=== PATIENT | male | born 1985 | race Two or more races ===

== ENCOUNTER 2023-07-17 11:13 | Outpatient (REF) | payer SELFPAY ==
[2023-07-17 13:34] LABS: MANUAL DIFF FLAG NO
[2023-07-17 13:42] LABS: Basophils Percent Auto 0.6 % (0-2); Eosinophils Absolute Auto 0.1 X10*3/uL (0.0-0.4); Eosinophils Percent Auto 0.9 % (0-4); Hematocrit 43.6 % (42.0-52.0); Hemoglobin 14.3 g/dl (14.0-18.0); Imm Gran Abs Auto 0.02 X10*3/uL (0.00-0.03); Imm Gran Pct Auto 0.4 % (0.0-0.4); Lymphocytes Absolute Auto 1.5 X10*3/uL (1.2-4.9); Lymphocytes Percent Auto 27.8 % (20-40); Mean Corpuscular HGB Conc 32.8 g/dl (31.0-36.0); Mean Corpuscular Hemoglobin 27.8 pg (27.0-33.0); Mean Corpuscular Volume 84.8 fL (80.0-98.0); Mean Platelet Volume 12.6 fL (9.4-12.4); Monocytes Absolute Auto 0.4 X10*3/uL (0.1-1.2); Monocytes Percent Auto 8.2 % (2-11); Neutrophils Absolute Auto 3.3 x10*3/uL (2.0-8.3); Neutrophils Percent Auto 62.1 % (45-73); Platelet Count 175 X10*3/uL (160-400); Red Blood Count 5.14 X10*6/uL (4.60-5.80); Red Cell Distribution Width 14.4 % (11.0-16.0); White Blood Count 5.4 X10*3/uL (4.8-10.8)
[2023-07-17 13:58] LABS: Estimated Average Glucose 100 mg/dL; Hemoglobin A1c % 5.1 % (<6.0)
[2023-07-17 14:09] LABS: Alanine Aminotransferase 16 U/L (0-40); Albumin Level 4.2 g/dL (3.5-5.0); Alkaline Phosphatase 60 U/L (39-117); Anion Gap 10 (12-20); Aspartate Amino Transferase 14 U/L (5-37); Bilirubin Direct 0.4 mg/dL (0.0-0.5); Bilirubin Total 0.9 mg/dL (0.0-1.0); Blood Urea Nitrogen 11 mg/dL (9-16); Carbon Dioxide 29 mmol/L (22-29); Chloride 107 mmol/L (96-108); Cholesterol 130 mg/dL (<200); Estimated Glomerular Filt Rate > 60; Glucose Random 62 mg/dL (60-115); HDL Cholesterol 52 mg/dL (>40); LDL Cholesterol Calculated 65 mg/dL (<100); Potassium 4.6 mmol/L (3.3-5.1); Sodium 141 mmol/L (135-145); Total Protein 6.8 g/dL (6.5-8.0); Triglycerides 67 mg/dL (<150)
[2023-07-17 14:24] LABS: TSH reflex Free T4 0.93 uIU/mL (0.32-4.0); Vitamin D 25-OH Total 24.7 ng/mL (>30)
[2023-07-17 14:30] LABS: Folate 10.2 ng/mL (> or = 4.0); Vitamin B12 326 pg/mL (200-900)
[2023-07-17 14:55] LABS: CT PCR NOT DETECTED (Not Detect.); NG PCR NOT DETECTED (Not Detect.)
[2023-07-18 09:02] LABS: HBS Num1 > 1000.00 mIU/mL (0-7.99); HBc Num1 0.06 S/CO (0.00-0.79); Hepatitis A Antibody IgM 0.14 Index (0-0.79); Hepatitis B Core Antibody Nonreactive (Nonreactive); Hepatitis B Surface Antigen Negative (Negative); ~HepC Num1 0.11 S/CO (0.00-0.79); ~Hepatitis A Antibody IgM Nonreactive (Nonreactive); ~Hepatitis B Surface Antibody REACTIVE (Nonreactive); ~Hepatitis C Antibody Nonreactive (Nonreactive)
[2023-07-20 22:14] LABS: HIV RNA PCR Qn Copies Not Detected Copies/mL; HIV RNA PCR Qn Log Copies Not Detected Log cps/mL
== END 2023-07-17 11:14 | disposition home or self-care (01) ==
LOC: HO.HHCL 11:13
PROVIDERS: Visit Provider Internal Medicine
DX: Z13.6 Encounter for screening for cardiovascular disorders (principal); R63.4 Abnormal weight loss; Z20.2 Contact with and (suspected) exposure to infections with a predominantly sexual mode of transmission
CPT/HCPCS: 0353U; 36415; 80048; 80061; 80076; 82306; 82607; 82746; 83036; 84443; 85025; 86704; 86706; 86709; 86803; 87340; 87536; 87900

== ENCOUNTER 2023-09-04 11:52 | Outpatient (REF) | payer MEDICAID, SELFPAY | END 2023-09-04 11:53 | disposition home or self-care (01) | LOC: HO.HHCLNP 11:52 | PROVIDERS: Visit Provider Emergency Medicine | DX: F11.20 Opioid dependence, uncomplicated (principal) | CPT/HCPCS: 36415; 80307 ==

== ENCOUNTER 2023-12-25 15:53 | Outpatient (AMB) | payer MEDICAID, SELFPAY ==
--- NOTE | 2023-12-25 16:06 | A.OFFVIS_ITS ---
Vital Signs 12/25/23 16:11 Height 5 ft 11 in Weight 167 lb BMI 23.3 BP 112/70 Blood Pressure Location Lt brachial Position Sitting Pulse 66 Intake Visit Reasons: pre colonoscopy Intake Note: Joce presents in office today for colonoscopy screening. CC: Patient reports an episode of what he believes was food poisoning and was having abdominal pain and fever. Denies other GI symptoms or concerns. Medical Imaging Technologist Required: No Accompanied by: Self / Same As Patient Allergies No Known Allergies Allergy (Verified 12/25/23 16:19) HPI HPI pre colonoscopy: Details: 38 year old male with past medical history of anxiety, depression, opioid use disorder on Suboxone, weight loss, family history of colon CA, smoker is here today for initial consultation. Patient reports that in the past few months he has been having postprandial diarrhea. Nausea and vomiting sometimes. He tho ught that he had some kind of food poisoning. Symptoms subsided to some extent, however he continues to have abdominal bloating with cramping, postprandial loose stools and epigastric pain. Patient reports that the pain is in the epigastric, sometimes in the left upper quadrant with occasional acid reflux, dyspepsia without dysphagia or odynophagia. Patient reports that he had few family members that were diagnosed with colorectal cancer in earlier stages of the life. [facility] Surgical History No pertinent past surgical history Family History Family/Other Colon cancer Father Colon cancer Paternal Aunt Stomach cancer Paternal Aunt Throat cancer Maternal Aunt Breast cancer Social History Household Members: Spouse and Children Alcohol intake: never Patient Tobacco Use Status: Current everyday Tobacco user Tobacco use type: Cigarette Cigarettes Per Day: 5 Substance Use Type: Heroin and Marijuana Review of Systems Const Denies weight gain and Denies weight loss ENT Reports no additional complaints, Denies dysphagia and Denies odynophagia Card Reports no additional complaints Resp Reports no additional complaints GI Reports abdominal pain (Epigastric, LUQ), Denies belching, Denies melena, Reports bloating, Denies change in bowel habits, Denies dysphagia, Denies excessive flatus, Reports dyspepsia, Reports heartburn, Denies diarrhea, Reports loose stools, Reports nausea, Denies odynophagia and Denies vomiting Reports no additional complaints Musc Reports no additional complaints Neuro Reports no additional complaints Psych Reports no additional complaints Endo Reports no additional complaints Physical Exam Vital Signs: Last Vital Signs Pulse 66 12/25/23 16:11 BP 112/70 12/25/23 16:11 BMI result Body Mass Index 23.3 Const General: healthy appearing, no acute distress and well developed Nutritional Appearance: well nourished Orientation/consciousness: patient oriented x3 Resp Effort & Inspection: normal respiratory effort, able to speak in complete sentences, no tracheal deviation and symmetric chest movement Auscultation: clear to auscultation bilaterally Cardio Rate: regular rate GI Inspection: Yes normal to inspection and No distended Palpation (GI): Soft to palpation, not firm, nontender and No hepatosplenomegaly present Auscultation: normal bowel sounds General: Yes no CVA tenderness Back/Spine/Pelvis Back: no CVA tenderness Skin General skin exam: elasticity normal, turgor normal and dry skin Neuro General: patient oriented x3 Psych Appearance: grossly normal Mental Status: mental status grossly normal Assessment & Plan Assessment & Plan (1) Postprandial abdominal bloating: Code(s): R14.0 - Abdominal distension (gaseous) (2) GERD (gastroesophageal reflux disease): Code(s): K21.9 - Gastro-esophageal reflux disease without esophagitis Qualifiers: Esophagitis presence: esophagitis presence not specified Qualified Code(s): K21.9 - Gastro-esophageal reflux disease without esophagitis (3) Postprandial diarrhea: Code(s): K52.9 - Noninfective gastroenteritis and colitis, unspecified (4) Postprandial epigastric pain: Code(s): R10.13 - Epigastric pain Plan Message sent to surgical schedulers to book both upper endoscopy and colonoscopy. In the meantime will rule out celiac, H pylori, pancreatitis. Will check for malabsorption, check thyroid study, liver panel. Patient will be started on omeprazole daily. If positive for H pylori will treat empirically. Discussed with patient the importance of avoiding dietary triggers and late night snacking. Increasing fluid intake, fiber intake and activity to promote better bowel motility. Patient will return in 3 months and we can discuss going for both upper endoscopy and colonoscopy. He is agreeable to current plan of care and verbalizes understanding of instructions. He was given the opportunity to ask questions and all questions answered. Thank you for allowing me to participate in his care Orders: Orders Transglutaminase Ab IgG 12/25/23 R10.9 - Unspecified abdominal pain TSH reflex Free T4 12/25/23 K59.00 - Constipation, unspecified H Pylori Breath Test 12/26/23 K21.9 - Gastro-esophageal reflux disease without esophagitis Lipase 12/25/23 R10.9 - Unspecified abdominal pain Vitamin D 25-OH (D2 and D3) 12/25/23 E55.9 - Vitamin D deficiency, unspecified Liver Panel 12/25/23 R74.01 - Elevation of levels of liver transaminase levels Vitamin B12 and Folate 12/25/23 R19.7 - Diarrhea, unspecified Transglutaminase IgA 12/25/23 R10.9 - Unspecified abdominal pain Medications: New omeprazole 20 mg PO DAILY 30 caps 4RF K21.9 - Gastro-esophageal reflux disease without esophagitis Coding Level of Care Code New Pt Level 4 (68230) Diagnoses Postprandial abdominal bloating R14.0 Gastroesophageal reflux disease, unspecified whether esophagitis present K21.9 Esophagitis presence: esophagitis presence not specified Postprandial diarrhea K52.9 Postprandial epigastric pain R10.13 Time Spent (min) 45 Comment 30 minutes spent with patient and additional 15 minutes spent reviewing his records
[2023-12-25 16:11] VITALS: BP 112/70; PULSE 66; BMI 23.3
== END 2023-12-25 17:00 | disposition home or self-care (01) ==
LOC: HO.HGI 15:54
PROVIDERS: PCP Internal Medicine; Visit Provider Nurse Practitioner Family
DX: R14.0 Abdominal distension (gaseous) (principal); K21.9 Gastro-esophageal reflux disease without esophagitis; K52.9 Noninfective gastroenteritis and colitis, unspecified; R10.13 Epigastric pain
CPT/HCPCS: 99204

== ENCOUNTER 2023-12-25 15:53 | Outpatient (REF) | payer MEDICAID, SELFPAY ==
[2023-12-27 09:31] LABS: H Pylori Breath Test Positive (Negative)
== END 2023-12-25 15:54 | disposition home or self-care (01) ==
LOC: HO.LNP 15:53
PROVIDERS: PCP Internal Medicine; Visit Provider Nurse Practitioner Family
DX: K21.9 Gastro-esophageal reflux disease without esophagitis (principal); Z01.818 Encounter for other preprocedural examination; R14.0 Abdominal distension (gaseous); K52.9 Noninfective gastroenteritis and colitis, unspecified; R10.13 Epigastric pain; K74.01 Hepatic fibrosis, early fibrosis; E55.9 Vitamin D deficiency, unspecified; R10.9 Unspecified abdominal pain
CPT/HCPCS: 83013; 99212

== ENCOUNTER 2024-02-11 11:59 | Emergency (ER) | payer MEDICAID, SELFPAY ==
--- NOTE | ~2024-02-11 | XR_ITS ---
EXAMINATION: XR LUMBOSACRAL SPINE CLINICAL INFORMATION: Back pain COMPARISON: None available. TECHNIQUE: Three views of the lumbosacral spine. FINDINGS: Mild dextroscoliosis of the lumbar spine. Facet arthritis in the lower lumbar spine. Multilevel lumbar spondylosis. Moderate degenerative changes with loss of disc space height and hypertrophic change at L5-S1. Normal grade 1 retrolisthesis of L5 on S1. XR/XR lumbar spine 2-3V IMPRESSION: Moderate degenerative disc disease at L5-S1. This study was presented today to February 11, 2024 for interpretation. Stat results provided at this time as requested by referring provider. Electronically signed by: Nathalia Bullock MD 02/11/2024 12:43 PM [facility]
[2024-02-11 12:08] VITALS: BP 119/65; PULSE 74; RESP 16; TEMP 36.8; O2SAT 98; BMI 24.0
--- NOTE | 2024-02-11 12:15 | ED_ITS ---
HPI - General Adult General Chief complaint: Back Pain/Injury Stated complaint: Back pain Time Seen by Provider: 02/11/24 13:23 Source: patient Mode of arrival: ambulatory Limitations: no limitations History of Present Illness ED Provider: Jaydon Echevarria HPI narrative: 38-year-old male presents to ED for low back pain without any trauma. Patient states history of chronic back pain due to injury as a child. Patient denies any urinary/bowel incontinence. Patient denies any recent IV drug use. Patient denies any abdominal pain, flank pain, fever, chills, nausea, vomiting, rash, dysuria, hematuria, or any genitourinary symptoms. Related Data Home Medications ?Medication ?Instructions ?Recorded ?Confirmed albuterol sulfate 90 mcg/actuation 2 puff inhalation Q6H PRN wheezing 12/25/23 aerosol inhaler (Ventolin HFA) buprenorphine 8 mg-naloxone 2 mg 1 film sublingual TID 12/25/23 sublingual film (Suboxone) cholecalciferol (vitamin D3) 25 25 mcg PO DAILY 12/25/23 mcg (1,000 unit) tablet sertraline 100 mg tablet 100 mg PO DAILY 12/25/23 Previous Rx's ?Medication ?Instructions ?Recorded omeprazole 20 mg capsule,delayed 20 mg PO DAILY #30 caps 12/25/23 release ketorolac 10 mg tablet 10 mg PO Q6H PRN pain #20 tabs 02/11/24 prednisone 20 mg tablet 40 mg (2 x 20 mg) PO DAILY 5 days 02/11/24 #10 tabs Allergies Allergy/AdvReac Type Severity Reaction Status Date / Time No Known Allergies Allergy Verified 02/11/24 12:12 Review of Systems Review of Systems: Low back pain Yes all other systems are reviewed and are negative [facility] Past Medical History Surgical History No pertinent past surgical history Family History Family History Family/Other Colon cancer Father Colon cancer Paternal Aunt Stomach cancer Paternal Aunt Throat cancer Maternal Aunt Breast cancer Social History Social History Household Members: Spouse and Children Alcohol intake: never Patient Tobacco Use Status: Current everyday Tobacco user Tobacco use type: Cigarette Cigarettes Per Day: 5 Substance Use Type: Heroin and Marijuana Advance Directives: No Advance Directives Information Provided: Yes Do you have a plan to hurt others: No Plan Physical Exam ED Vital Signs: Vital Signs - 24 hr 02/11/24 12:08 02/11/24 14:08 Temperature 98.3 F 98.3 F Pulse Rate 74 74 Respiratory Rate 16 16 Blood Pressure 119/65 119/65 Pulse Oximetry 98 98 Oxygen Delivery Method Room Air Room Air BMI result Body Mass Index 24.0 Const General: cooperative, healthy appearing, comfortable, no acute distress, well developed, alert, awake and Physically active Orientation/consciousness: patient oriented x3 HENMT Head: Yes normal to inspection, Yes No palpable skull fracture present, Yes normocephalic and Yes atraumatic Eyes General: appearance normal, both eyes and all related structures Neck Neck: Yes normal visual inspection, Yes full ROM, Yes no lymphadenopathy, Yes no meningeal signs, Yes trachea midline, Yes supple, No anterior neck swelling and No tender Chest Chest palpation & inspection: normal inspection of the chest and normal palpation of entire chest wall Resp Effort & Inspection: normal respiratory effort and able to speak in complete sentences Auscultation: clear to auscultation bilaterally Cardio Jugular venous distension: no JVD Heart sounds: S1 normal heart sound present and S2 normal heart sound present GI Inspection: Yes normal to inspection Palpation (GI): Soft to palpation, not firm, nontender, no guarding and not rigid General: Yes no CVA tenderness Back/Spine/Pelvis Back: no CVA tenderness and back tenderness (lumbar spine tenderness) Skin General skin exam: no rashes or lesions noted, elasticity normal and turgor normal Neuro General: patient oriented x3, gait normal, tone normal, moves all extremities, N ormal light touch and pain sensation, no meningeal signs, no focal motor deficits, CN's II-XI intact bilaterally and normal sensation to monofilament Extrem General: Yes normal to inspection, Yes full ROM and Yes capillary refill normal Psych Appearance: grossly normal, well kempt and not disheveled Course Course Course Narrative: RME: 38 year male presents to ED for low back pain for the past couple of weeks without any trauma. Patient states history of back issues due to injury as a child. Patient denies any urinary/bowel incontinence. X-ray ordered. Positive for lumbar spine tenderness Medications Administered Discontinued Medications Generic Name Dose Route Start Last Admin Trade Name Freq PRN Reason Stop Dose Admin Ketorolac Tromethamine 30 mg 02/11/24 13:27 02/11/24 13:33 Ketorolac Tromethamine 30 Mg/Ml Vial IM 02/11/24 13:28 30 mg ONCE ONE Administration Medical Decision Making Medical Decision Making MDM Narrative: 38-year-old male presents to ED for lower back exacerbation. Patient states history of back issues since he was young. Patient denies any recent trauma. Patient denies any urinary/bowel incontinence, fever, chills, gum pain, nausea, vomiting, dysuria, hematuria, flank pain. Patient states back pain is worse on movement. Patient denies any recent IV drug use. Patient's pain improved after receiving Toradol. Patient explained worrisome signs and informed to return to the ED immediately. Not suspecting cauda equinua, epidural abscess. Not suspecting kidney stone pyelonephritis, or UTI. Differential Diagnosis Differential Diagnoses: The differential diagnosis associated with the presentation includes (back pain, lumbar radiculpahty) Admission/Observation Consideration of admission/observation: Escalation of care including admission/observation considered Independent Interpretation I performed an independent interpretation of an: Plain X-Ray Radiology Impression Discussion of test interpretation with radiology: I have reviewed the radiologist's reading. Independent Historian Clinical information obtained from an independent historian. History obtained from or confirmed by: Other (patient) External Record Review External record reviewed: Other (patient) Prescription Management I considered prescription management with: Pain Medication Discharge Plan Discharge Clinical Impression: Lumbar radiculopathy Patient Disposition: Home, Self-Care Instructions: Lumbar Radiculopathy (ED) Additional Instructions: Recommend follow up with the primary care provider. Return to the ED immediately for any urinary/bowel incontinence, severe back pain, nausea, vomiting, flank pain, fever, chills, paralysis numbness of lower extremity, or any other concerning symptoms. FINDINGS: Mild dextroscoliosis of the lumbar spine. Facet arthritis in the lower lumbar spine. Multilevel lumbar spondylosis. Moderate degenerative changes with loss of disc space height and hypertrophic change at L5-S1. Normal grade 1 retrolisthesis of L5 on S1. XR/XR lumbar spine 2-3V IMPRESSION: Moderate degenerative disc disease at L5-S1. This study was presented today to February 11, 2024 for interpretation. Stat results provided at this time as requested by referring provider. Electronically signed by: Nathalia Bullock MD 02/11/2024 12:43 PM [facility] Dictated By: Nathalia Bullock MD Signed By: <Electronically signed by Nathalia Bullock MD in OV> 02/11/24 1243 Prescriptions: New prednisone 20 mg tablet 40 mg PO DAILY 5 Days Qty: 10 0RF ketorolac 10 mg tablet 10 mg PO Q6H PRN (Reason: pain) Qty: 20 0RF Rx Instructions: Patient received 30 mg IM Toradol in the ED No Action cholecalciferol (vitamin D3) 25 mcg (1,000 unit) tablet 25 mcg PO DAILY buprenorphine-naloxone [Suboxone] 8-2 mg film 1 film sublingual TID sertraline 100 mg tablet 100 mg PO DAILY albuterol sulfate [Ventolin HFA] 90 mcg/actuation HFA aerosol inhaler 2 puff inhalation Q6H PRN (Reason: wheezing) omeprazole 20 mg capsule,delayed release(DR/EC) 20 mg PO DAILY Qty: 30 4RF Referrals: Mark Macias MD, PhD [Physician] - (lumbar radiculopathy) Stand Alone Forms: Work/School Release Interventions: ED Discharge Assessment Last Done: 02/11/24 14:08 Discharge Date/Time: 02/11/24 14:08 Print Language: Liberian
[2024-02-11] MEDS: Ketorolac Tromethamine 30 MG/ML VIAL IM (13:33)
[2024-02-11 14:08] VITALS: BP 119/65; PULSE 74; RESP 16; TEMP 36.8; O2SAT 98
== END 2024-02-11 14:08 | disposition home or self-care (01) ==
PROVIDERS: Emergency Provider Emergency Medicine; PCP Internal Medicine
DX: M54.16 Radiculopathy, lumbar region (principal); M54.50 Low back pain, unspecified; F17.210 Nicotine dependence, cigarettes, uncomplicated
CPT/HCPCS: 72100; 96372; 99283; 99284; J1885

== ENCOUNTER 2024-10-27 15:54 | Outpatient (REF) | payer MEDICAID, SELFPAY ==
--- OUTSIDE RECORDS SUMMARY | 2024-10-27 13:00 | XMS_ITS | Encounter Summary ---
Author Organization [employer] Address [address] [place] [address] Care Team Providers Care Ground Hand Name Role Phone Donna Friedman MD Primary Care Provide r Reason for Visit * Reason Comments OBAT F/U Encounter Details Date Type Department Care Team (Latest Contact Info) Description 10/27/2024 1:00 PM EDT Clinical Support [facility] [address] [place] [id number] Lashell Kapadia RN Opioid type dependence, continuous (CMS/HCC) (Primary Dx) Social History Tobacco Use Types Packs/Day Years Used Date Smoking Tobacco: Every Day Cigarettes 0.3 19 Smokeless Tobacco: Never Alcohol Use Standard Drinks/Week Comments Yes 0 (1 standard drink = 0.6 oz pur e alcohol) Depression Answer Date Recorded Patient Health Questionnaire-9 Score 20 07/17/2023 Patient Health Questionnaire-9 Score 20 07/17/2023 Last PHQ-9: Questionnaire Data Not on file 0 07/17/2023 Housing Stability Answer Date Recorded What is your housing situation today? I have vasyl mitchell 07/17/[address] you li ve. Do you have problems with any of the following? None of the above 07/17/2023 Food Insecurity Answer Date Recorded Within the past 12 months, y ou worried that your food would run out before you got money to buy more: Never True 04/30/2023 Within the past 12 months,th e food you bought just didn't last and you didn't have enough money to get more: Never True 12/2023 Transportation Answer Date Recorded In the past 12 months, has l ack of transportation kept you from medical appts, meetings, work or from getting things needed for daily living? No 04/30/2023 Utilities Answer Date Recorded In the past 12 months, has t he electric, gas, oil or water company threatened to shut off services in your home? No 07/17/2023 Depression Answer Date Recorded Patient Health Questionnaire-2 Score 6 07/17/2023 Sex and Gender Information Value Date Recorded Sex Assigned at Male 12/19/2021 10:29 AM EDT Legal Sex Male 10:29 AM EDT Gender Identity Male 02/23/2022 2:04 PM EST Sexual Orientation Straight 02/23/2022 2: 04 PM EST documented as of this encounter Progress Notes * Lashell Kapadia RN - 10/27/2024 1:00 PM EDT Patient here today for Opioid Dependence RV. Patient on current Suboxone dose of 24/6 mg on a 12 week schedule. Patient has been in the program for 2 years, 8 months. Induction date: 02/23/22. LFTs done 10/27/24. [place] PAT reviewed by provider. Last PCP appt sched for 12/19/2023, Pt was a no show. LAST VISIT 09/01/24 UTOX NOT REQUESTED TODAY Joce presented today for OBAT RN IN PERSON VISIT for Opioid Use Disorder. He is alert and oriented. Speech clear, coherent, goal directed. Easily engaged and initiates conversation. 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 In good spirits today. Doing well on suboxone. Denies illicit substance use, cravings or side effects. Concerned about his weight loss, but has not kept most recent scheduled appointments. He feels that it may be due more calories expended than taken in. He also said that he has had labwork done but everything was okay. Suggested he f/u with his PCP. Plan: Suboxone dosing schedule of 24/6 mg daily and management of side effects reviewed. Recovery support, harm reduction (including Narcan), and behavioral health attendance reviewed. Appointment for 12 weeks given (due to holiday 06/09. Patient expressed understanding and agreement with continuing plan of care. TODAY 10/27/24 UTOX: +bup, thc Joce presented today for OBAT RN IN PERSON VISIT for Opioid Use Disorder. He is alert and oriented. Speech clear, coherent, goal directed. Easily engaged and initiates conversation. Doing well on suboxone. Denies illicit substance use, cravings or side effects. 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 He is going to the lab today to complete his ordered labwork. Plan: Suboxone dosing schedule of 24/6 mg daily and management of side effects reviewed. Recovery support, harm reduction (including Narcan), and behavioral health attendance reviewed. Appointment for 12 weeks given. Patient expressed understanding and agreement with continuing plan of care. This information has been disclosed to you from records protected by federal confidentiality rules (42 CFR Part 2). The federal rules prohibit you from making any further disclosure of information inthis record that identifies a patient as having or having had a substance use disorder either directly, by reference to publicly available information, or through verification of such identification by another person unless further disclosure is expressly permitted by the written consent of the individual whose information is being disclosed or as otherwise permitted by (see2.3.1). The federal rules restrict any use of the information to investigate or prosecute with regard to a crime any patient with a substance use disorder, except as provided at 2.12??(5) and 2.65. documented in this encounter Plan of Treatment Upcoming Encounters Date Type Department Care Team (Late st Contact Info) Description 01/19/2025 1:00 PM EST Clinical Support [facility] MEDICINE [address] [place] [phone] Lashell Kapadia RN documented as of this encounter Procedures Procedure Name Priority Date/Time Associated Diagnosis Comments POCT REMY-14 URINE DRUG SCREEN Routine 10/27/2024 3:50 PM EDT Opioid type dependence, continuous ([facility]/HCC) documented in this encounter Results * (ABNORMAL) POCT REMY-14 Urine Drug Screen (10/27/2024 3:50 PM EDT) THC Positive(A) Negative Cocaine Screen, Urine Negative Negative Opiate Screen, Urine Negative Negative Methamphetamine Screen Urine Negative Negative Amphetamine Screen, Urine Negative Negative Benzodiazepines Screen, Urine Negative Negative Barbiturate Screen, Urine Negative Negative Methadone Screen, Urine Negative Negative Buprenophine Screen, Urine Positive(A) Negative TCA, Urine Negative Negative MDMA Urine Negative Negative ng/mL Oxycodone Screen, Urine Negative Negative Phencyclidine (PCP), Urine Negative Negative Fentanyl, Urine Negative Negative Urine Urine specimen obtained by clean catch procedure / Unknown 10/27/2024 3:50 PM EDT Margoth Flores MD POINT OF CARE TEST ENTER/EDIT OR DERABLES Final Result documented in this encounter Visit Diagnoses Diagnosis Opioid type dependence, continuous (CMS/[facility])- Primary Opioid type dependence, continuous documented in this encounter Additional Health Concerns Assessment Noted Time PHQ-9 Depression Total Score: 20 024 10:30 AM EDT documented as of this encounter Care Teams Ground Hand Relationship Specialty Start Date End Date Donna Friedman MD [address] [place] [address] PCP - General Internal Medicine 07/17/23 documented as of this encounter
[2024-10-27 17:51] LABS: Alanine Aminotransferase 21 U/L (0-40); Albumin Level 4.5 g/dL (3.5-5.0); Alkaline Phosphatase 56 U/L (39-117); Aspartate Amino Transferase 22 U/L (5-37); Total Protein 6.9 g/dL (6.5-8.0)
--- OUTSIDE RECORDS SUMMARY | 2024-10-27 18:38 | XMS_ITS | Encounter Summary ---
Author Organization [employer] [facility] Address [address] [place] [address] [address] [place] [address] Care Team Providers Care Fitter Machinist Name Role Phone Donna Friedman MD Primary Care Provide r Encounter Details Date Type Department Care Team (Late Contact Info) Description 03/03/2022 Orders Only [facility] [address] [place] [id number] Lashell Kapadia, RN Social History Tobacco Use Types Packs/Day Years Used Date Smoking Tobacco: Every Day Cigarettes 1 19 Smokeless Tobacco: Never Sex and Gender Information Value Date Recorded Sex Assigned at Male 12/19/2021 10:29 AM EDT Legal Sex Male 10:29 AM EDT Gender Identity Male 02/23/2022 2:04 PM EST Sexual Orientation Straight 02/23/2022 2: 04 PM EST COVID-19 Exposure Response Date Recorded In the last 10 days, have yo u been in contact with someone who was confirmed or suspected to have Coronavirus/COVID-19? No / Unsure 03/02/2022 1:44 PM EST documented as of this encounter Plan of Treatment Upcoming Encounters Date Type Department Care Team (Late Contact Info) Description 01/19/2025 1:00 PM EST Clinical Support [facility] [address] [place] [id number] Lashell Kapadia, RN documented as of this encounter Visit Diagnoses Not on filedocumented in this encounter Care Teams Fitter Machinist Relationship Specialty Start Date End Date Donna Friedman MD [address] [place] [phone] PCP - General Internal Medicine 07/17/23 documented as of this encounter
--- OUTSIDE RECORDS SUMMARY | 2024-10-27 18:38 | XMS_ITS | Clinical Summary ---
Author Organization [employer] Address [address] [facility] 7t [place] [address] Care Team Providers Care Ophthalmic Technician Name Role Phone Donna Friedman MD Primary Care Provide r Allergies No known active allergies Medications albuterol 108 (90 Base) MCG/ACT inhalerIndicati ons:Mild intermittent asthma without complication Inhale 2 puffs every 6 (six) hours if needed for wheezing. 18 g 07/17/19 24 Active sertraline (Zoloft) 100 MG tabletIndicatio ns:Anxiety and depression Take 1 tablet (100 mg) by mouth Once per day. 30 tablet 2 09/18/19 24 Active Additional Information Patient not taking.Reported on 06/16/2024 cholecalciferol (Vitamin D-3) 25 MCG tabletIndicatio ns:Vitamin D deficiency TAKE 1 TABLET BY MOUTH EVERY DAY 90 tablet 1 11/12/19 24 Active Additional Information Patient not taking.Reported on 06/16/2024 acetaminophen (Tylenol 8 Hour) 650 MG ER tablet Take 1 tablet (650 mg) by mouth every 8 (eight) hours if needed for mild pain. Do not crush, chew, or split. 30 tablet 06/17/19 25 Active acetaminophen (Tylenol 8 Hour) 650 MG ER tabletIndicatio ns:Retained root of tooth after tooth extraction Take 1 tablet (650 mg) by mouth every 8 (eight) hours if needed for mild pain. Do not crush, chew, or split. 30 tablet 07/30/19 25 Active Buprenorphine HCl-Naloxone HCl (Suboxone) 8-2 MG SL filmIndications :Uncomplicated opioid dependence (CMS/HCC) Place 1 Film under the tongue 3 times daily. 84 Film 2 10/14/19 25 2024 Active Buprenorphine HCl-Naloxone HCl (Suboxone) 8-2 MG SL filmIndications :Uncomplicated opioid dependence (CMS/HCC) Place 1 Film under the tongue 3 times daily. 84 Film 1 08/27/19 25 2024 Discontinued(R eorder (will not trigger notification to Pharmacy)) Active Problems Problem Noted Date Diagnosed Date Retained root of tooth after tooth extraction Dental abscess 06/16/2024 Pain due to dental caries 06/16/2024 Hypercementosis 06/16/2024 Vitamin D deficiency 08/21/2023 Weight loss 07/17/2023 Assessment & Plan (07/17/2023 11:08 AM EDT): Blood work ordered including diabetes screening (patient has strong family history) RTC 4 weeks Family history of colon cancer 07/17/2023 Smoker 07/17/2023 Assessment & Plan (07/17/2023 11:09 AM EDT): Patient wants to try to quit on his own Asthma 03/13/2022 Assessment & Plan (07/17/2023 11:07 AM EDT): Patient educated to avoid triggers c/w albuterol PRN PTSD (post-traumatic stress disorder) 10/31/2021 Overview (06/16/2024): States hx of anxiety and hypervigilance even prior to incarceration. Discussed med management but at present would like to begin with . Last Assessment & Plan: Update Continues with [facility], denies use Got certificate, happy about that-working with resources on getting ID, trying to look for employment. [facility] Continues to assess PTSD r/o. Anxiety is coming down a little bit but still daily Hypervilgience at night time, troulbe with sleeping or falling asleep: experienced hearing voices like he was in alf, woke up thinking he was in alf in the Moment-didn't realize where he was Hearing landing signal officer voices, feeling of I want to run [employer] feeling of anxieyt talking to others, doesn't want peope to think he is stupid-sometimes feels like he is going crazy Notices low appetite, forces self to eat Tearful in session Intervention: Psychoeducation on PTSD--discussed sxms of PTSD, connection of trauma, incaceration and present experiences. Named language around flashbacks Discussed Grounding techniques-bring self in present (5 senses, breathing) Plan Continue with [facility] counseling Continue to engage with [facility] Does exhibit s/sx of PTSD (not being able to be in a crowd), nightmares, triggers, flashbacks. We discussed use of prazosin to help with sleep- will consider states for now would like to pursue IBH Denies any thougths to harm self or others. Last Assessment & Plan: Overall he has done well -in terms of addiction, re-entry after 13- year incarceration despite struggles with anxiety, lack of self-soothing skills (independent of medications) No acute safety concerns Most relevant risk for him is resuming substance use followed by return to [facility] Reminded him of strengths (personable), safe living, available resources, services, people to support him Needs some support for vocational, job readiness, education Plan: Start prazosin 2 mg at bedtime , will need dose titration Refer for psychopharm assessment Reminded of upcoming appointment with Katy Osorio Continue with Brandt in [facility] SW patient navigator Individual therapy (or group?) therapy important too Assessment & Plan (09/18/2023 12:16 PM EDT): Counseling done I will increase sertraline to 100mg daily RTC 3 months Assessment & Plan (08/21/2023 11:52 AM EDT): Counseling done Continue visits with therapist I will increase his sertraline to 50mg daily, he declines medications that make him feel drowsy RTC 4 weeks Assessment & Plan (07/17/2023 11:08 AM EDT): Counseling done C/w therapist I will start him on sertraline 25mg daily RTC 4 weeks televisit Opioid use disorder, severe, in sustained remiss ion 10/20/2021 Overview (06/16/2024): Last Assessment & Plan: Overall he has done well -in terms of addiction, re-entry after 13 year incarceration despite struggles with anxiety, lack of self-soothing skills (independent of medications) Last illicit opioid use was 2018 Concern that requested dose increase in suboxone is due to behavioral reasons, restlessness, and poor sleep, which are somewhat difficult to disentangle from cravings for opioids and risk of return to illicit opioid use Discussed options, consulted with Leola NAYAK cafeteria manager 1. OK to increase suboxone to 24 mg a day to monitor for sedation, other side effects 2. Start prazosin for PTSD, night terrors 3. Refer for psychopharm assessment 4. Reminded of upcoming appointment with Katy Osorio 5. Continue with Brandt in [facility] patient navigator Assessment & Plan (07/17/2023 11:08 AM EDT): C/w suboxone program Encounters Date Type Department Care Team Description 10/27/2024 1:00 PM EDT Clinical Support [facility] MEDICINE [address] [place] [phone] Lashell Kapadia RN Opioid type dependence, continuous (CMS/HCC) (Primary Dx) 10/27/2024 Orders Only [facility] [address] [place] [phone] Al Hernández MD 10/27/2024 Travel 10/24/2024 Orders Only [facility] [address] [place] [phone] Lashell Kapadia RN Uncomplicated opioid dependence (CMS/HCC) 10/13/2024 Refill [facility] [address] [place] [phone] Lashell Kapadia RN Uncomplicated opioid dependence (CMS/HCC) 09/01/2024 1:15 PM EDT Clinical Support [address] [address] Lashell Kapadia RN Uncomplicated opioid dependence (CMS/HCC) 09/01/2024 Travel 08/26/2024 Refill [facility] [address] [place] [phone] Lashell Kapadia RN Uncomplicated opioid dependence (CMS/HCC) 08/25/2024 Refill [facility] [address] [facility] [place] [address] Al Hernández MD Uncomplicated opioid dependence ([facility]/HCC) 08/14/2024 Telephone [facility] [address] [facility] [place] [address] Lashell Kapadia RN 07/29/2024 8:00 AM EDT Office Visit [facility] ADULT DENTAL [address] [place] [address] Augustus Clemente DDS Retained root of tooth after tooth extraction (Primary Dx) from Last 3 Months Immunizations Immunization Administration Dates Next Due Hep A, Adult 06/02/2017 Hep B, adult 06/02/2017 Influenza injectable quadrivalent preservative f ree 12/19/2017 Influenza, trivalent, adjuvanted 01/29/2020 MMR 06/02/2017 Pneumococcal Conjugate PCV 20 07/17/2023 Pneumococcal Polysaccharide PPSV23 06/02/2017 Tdap 05/15/2017 Social History Tobacco Use Types Packs/Day Years [...] the past 12 months, has t he [employer] oil or water [employer] threatened to shut off services in your home? No 07/17/2023 Depression Answer Date Recorded Patient Health Questionnaire-2 Score 6 07/17/2023 Sex and Gender Information Value Date Recorded Sex Assigned at Male 12/19/2021 10:29 AM EDT Legal Sex Male 10:29 AM EDT Gender Identity Male 02/23/2022 2:04 PM EST Sexual Orientation Straight 02/23/2022 2: 04 PM EST Last Filed Vital Signs Vital Sign Reading Time Taken Comments Blood Pressure 130/82 07/29/2024 8:03 AM EDT Pulse 76 07/29/2024 8:03 AM EDT Temperature 37.1 C (98.8 F) 07/17/2023 10:29 AM EDT Respiratory Rate 18 07/17/2023 10:29 AM EDT Oxygen Saturation - - Inhaled Oxygen Concentration - - Weight 77.2 kg (170 lb 3.2 oz) 07/17/2023 10:29 AM EDT Height 180.3 cm (5' 11 ) 07/17/2023 10:29 AM EDT Body Mass Index 23.74 07/17/2023 10:29 AM EDT Plan of Treatment Upcoming Encounters Date Type Department Care Team (Late st Contact Info) Description 01/19/2025 1:00 PM EST Clinical Support [address] [address] Lashell Kapadia, FABIAN Health Maintenance Due Date Last Done Comments Dental Oral Exam 1985 Dental Prophylaxis 1985 Disability Screening 1985 Alcohol/Substance Use Screening 1997 Family Planning (PISQ) 2000 HPV Vaccines (1 - Male 3-dos e series) 2000 Hepatitis B Vaccines (2 of 3 - 19+ 3-dose series) 06/30/2017 06/02/2017 Depression Monitoring 01/17/2024 07/17/2023 , 07/17/2023 SDOH Screening 07/16/2024 07/17/2023 COVID-19 Vaccine (4 - 2024-2 6 season) 2024 02/01/2021, 04/06/2020, 03/12/2020 Influenza Vaccine (#1) 2024 , 12/19/2017 Dental X-Ray: Bitewings 06/17/2025 06/16/2024 Tobacco Screening 07/29/2025 07/29/2024 DTaP/Tdap/Td Vaccines (2 - T d or Tdap) 05/16/2027 05/15/2017 Dental X-Ray: Full Mouth 07/31/2027 07/29/2024 Lipid Panel 07/16/2028 07/17/2023 Zoster Vaccines (1 of 2) 10/22/2035 RSV Patients and Patients Aged 60 years or older (1 - 1-dose 75+ series) 2060 Hepatitis A Vaccines Aged Out 06/02/2017 No long er eligible based on patient's age to complete this topic HIV Screening Completed 05/01/2022, 10/26/2021 Hepatitis C Screening Completed 07/17/2023 , 05/01/2022 Pneumococcal Vaccine: Pediatrics (0 to 5 Years) and At-Risk Patients (6 to 49) Years Completed 07/17/2023, 06/02/2017 HIB Vaccines Aged Out No longer eligi ble based on patient's age to complete this topic IPV Vaccines Aged Out No longer eligi ble based on patient's age to complete this topic Meningococcal B Vaccine Aged Out No l onger eligible based on patient's age to complete this topic Meningococcal Vaccine Aged Out No ronen lesli eligible based on patient's age to complete this topic RSV under 20 months Aged Out No longe r eligible based on patient's age to complete this topic Rotavirus Vaccines Aged Out No longer eligible based on patient's age to complete this topic Procedures Procedure Name Priority Date/Time Associated Diagnosis Comments HEPATIC FUNCTION PANEL Routine 10/27/2024 3:59 PM EDT POCT REMY-14 URINE DRUG SCREEN Routine 10/27/2024 3:50 PM EDT Opioid type dependence, continuous (CMS/HCC) CASE PRESENTATION, DETAILED AND EXTENSIVE TREATMENT PLANNING Routine 07/29/2024 8:00 AM EDT PANORAMIC RADIOGRAPHIC IMAGE Routine 07/29/2024 8:00 AM EDT 17 EXTRACTION, ERUPTED TOOTH OR EXPOSED ROOT (ELEVATION/FORCEPS REMOVAL) Routine 07/29/2024 8:00 AM EDT BITEWING - SINGLE RADIOGRAPHIC IMAGE Routine 06/16/2024 10:00 AM EDT HEPATITIS PANEL, GENERAL Routine 07/17/2023 11:16 AM EDT Weight loss LIPID PANEL, STANDARD Routine 07/17/2023 11:16 AM EDT Weight loss HIV 1/2 ANTIGEN/ANTIBODY, FOURTH GENERATION W/RFL Routine 05/01/2022 2:39 PM EDT Uncomplicated opioid dependence (CMS/HCC) from Last 3 Months or Most Recently Relevant to Health Maintenance Results * Hepatic Function Panel (10/27/2024 3:59 PM EDT) Bilirubin, Total 0.6 0.0 - 1.0 mg/dL [facility] Bilirubin, Direct 0.2 0.0 - 0.5 mg/dL [facility] Aspartate Amino Transferase 22 5 - 37 U/L [facility] Alanine Aminotransferase 21 0 - 40 U/L [facility] Total Protein 6.9 6.5 - 8.0 g/dL [facility] Albumin Level 4.5 3.5 - 5.0 g/dL [facility] Alkaline Phosphatase 56 39 - 117 U/L [facility] 10/27/2024 3:59 PM EDT 10/27/2024 5:27 PM EDT us Al Hernández MD LAB BLOOD ORDERABLES Final Resul t [facility] [address] [place] [phone] * (ABNORMAL) POCT REMY-14 Urine Drug Screen [...] procedure / Unknown 10/27/2024 3:50 PM EDT us Margoth Flores MD POINT OF CARE TEST ENTER/EDIT OR DERABLES Final Result * Hepatitis Panel, General (07/17/2023 11:16 AM EDT) Hepatitis A IgM Nonreactive Nonreactive [facility] Comment:IgM antibodies to REYES V not detected; does not exclude earlyacute or recovered HAV infection. ~Hepatitis B Surface Antibody REACTIVE Nonreactive [facility] Comment:REACTIVE: > 11.99 mI U/mL Hepatitis B Core Antibody Nonreactive Nonreactive [facility] Hepatitis C Antibody Nonreactive Nonreactive [facility] Comment:Antibodies to HCV no t detected; does not exclude early acuteHCV infection. Hepatitis B Surface Ag Negative Negative [facility] Blood 07/17/2023 11:1 6 AM EDT 07/17/2023 1:32 PM EDT us Donna Polk MD LAB BLOOD ORDERABLES Final Result [facility] [address] [place] [address] [phone] * Lipid Panel, Standard (07/17/2023 11:16 AM EDT) Triglycerides 67 <150 mg/dL [facility] Comment:Desirable Triglyceri de: less than 150 mg/dLBorderline High Triglyceride 150-199 mg/dLHigh Triglyceride: 200-499 mg/dLVery High Triglyceride: greater than or equal to 5OO mg/dL Cholesterol 130 <200 mg/dL [facility] Comment:Desirable Cholestero l: less than 200 mg/dLBorderline High Cholesterol: 200-239 mg/dLHigh Cholesterol: greater than 239 mg/dL LDL Cholesterol Calculated 65 <100 mg/dL [facility] Comment:Desirable LDL: less than 100 mg/dLNear Optimal/Above Optimal LDL: 110- 129 mg/dLBorderline High LDL: 130-159 mg/dLHigh LDL: 160-189 mg/dLVery High LDL: greater than or equal to 190 mg/dL HDL Cholesterol 52 >40 mg/dL [facility] Comment:Desirable HDL: great er than 40 mg/dL Note: This HDL assay may give artificially low results in patients with liver disease. Blood Venous blood specimen / Unknown 07/17/2023 11:16 AM EDT 07/17/2023 1:32 PM EDT Donna Polk MD LAB BLOOD ORDERABLES Final Result [facility] [address] [place] [phone] * HIV-1/2 Antigen and Antibodies, Fourth Generation, with Reflexes (05/01/2022 2:39 PM EDT) [facility] HIV Antigen/Antibody, 4th Generation NON-REAC TIVE NON-REAC TIVE [facility] [employer] [facility] [facility] Comment: HIV-1 antigen and HIV-1/HIV-2 antibodies were not detected. There is no laboratory evidence of HIV infection. PLEASE NOTE: This information has been disclosed to you from records whose confidentiality may be protected by state law. If your state requires such protection, then the state law prohibits you from making any further disclosure of the information without the specific written consent of the person to whom it pertains, or as otherwise permitted by law. A general authorization for the release of medical or other information is NOT sufficient for this purpose. For additional information please refer to http://education.[employer]/faq/OPF691 (This link is being provided for informational/ educational purposes only.) The performance of this assay has not been clinically validated in patients less than 2 years old. Blood Venous blood specimen / Unknown 05/01/2022 2:39 PM EDT 05/01/2022 2:40 PM EDT Narrative [facility] - 05/06/2022 10:39 PM EDT FASTING:YES FASTING: YES us Al Hernández MD LAB BLOOD ORDERABLES Final Resul t [facility] [address], [place] [address] [employer] [facility] [address] [place] [phone] from Last 3 Months or Most Recently Relevant to Health Maintenance Insurance [facility] C3 HSN FULL DENTAL-[facility] MEDICAID STAND ADULT Care Teams Ophthalmic Technician Relationship Specialty Start Date End Date Donna Friedman MD [address] [place] [phone] PCP - General Internal Medicine 07/17/23
--- OUTSIDE RECORDS SUMMARY | 2024-10-27 18:38 | XMS_ITS | Encounter Summary ---
Author Organization [employer] Address [address] [place] [address] Care Team Providers Care Tdp Displays Analyst Name Role Phone Donna Friedman MD Primary Care Provide r Encounter Details Date Type Department Care Team (Late st Contact Info) Description 10/27/2024 Orders Only [facility] WALK-IN CENTER [address] [place], [place] [phone] Al Hernández MD [address] [place], [place] [phone] Social History Tobacco Use Types Packs/Day Years [...] Description 01/19/2025 1:00 PM EST Clinical Support [facility] MEDICINE [address] [place] [phone] Lashell Kapadia RN documented as of this encounter Procedures Procedure Name Priority Date/Time Associated Diagnosis Comments HEPATIC FUNCTION PANEL Routine 10/27/2024 3:59 PM EDT documented in this encounter Results * Hepatic Function Panel (10/27/2024 3:59 PM EDT) Bilirubin, Total 0.6 0.0 - 1.0 mg/dL [facility] Bilirubin, Direct 0.2 0.0 - 0.5 mg/dL [facility] Aspartate Amino Transferase 22 5 - 37 U/L [facility] Alanine Aminotransferase 21 0 - 40 U/L [facility] Total Protein 6.9 6.5 - 8.0 g/dL [facility] Albumin Level 4.5 3.5 - 5.0 g/dL [facility] Alkaline Phosphatase 56 39 - 117 U/L [facility] 10/27/2024 3:59 PM EDT 10/27/2024 5:27 PM EDT us Al Hernández MD LAB BLOOD ORDERABLES Final Resul t [facility] [address] [place] [phone] [phone] documented in this encounter Visit Diagnoses Not on filedocumented in this encounter Additional Health Concerns Assessment Noted Time PHQ-9 Depression Total Score: 20 024 10:30 AM EDT documented as of this encounter Care Teams Tdp Displays Analyst Relationship Specialty Start Date End Date Donna Friedman MD [address] [place] [address] PCP - General Internal Medicine 07/17/23 documented as of this encounter
--- OUTSIDE RECORDS SUMMARY | 2024-10-27 18:38 | XMS_ITS | Encounter Summary ---
Author Organization [employer] [facility] Address [address] [place] [address] 7t [place] [address] Care Team Providers Care Senior Business Objects Developer Name Role Phone Donna Friedman MD Primary Care Provide r Encounter Details Date Type Department Care Team ([facility] Contact Info) Description 03/01/2022 Abstract [facility] MEDICINE [address] [place] [phone] Margoth Flores MD [address] [place] [address] [phone] Social History Tobacco Use Types Packs/Day Years Used Date Smoking Tobacco: Never Assessed Sex and Gender Information Value Date Recorded [...] Description 01/19/2025 1:00 PM EST Clinical Support [facility] MEDICINE [address] [place] [phone] Lashell Kapadia RN documented as of this encounter Visit Diagnoses Not on filedocumented in this encounter Care Teams Senior Business Objects Developer Relationship Specialty Start Date End Date Donna Friedman MD [address] [place] [address] [phone] PCP - General Internal Medicine 07/17/23 documented as of this encounter
--- OUTSIDE RECORDS SUMMARY | 2024-10-27 18:38 | XMS_ITS | Encounter Summary ---
Author Organization [employer] Address [address] [place] [address] [address] [place] [address] Care Team Providers Care Customer Account Manager Name Role Phone Donna Friedman MD Primary Care Provide r Reason for Visit * Reason Onset Date Comments New Patient 10/12/2022 Encounter Details Date Type Department Care Team (Late st Contact Info) Description 10/12/2022 Telephone [facility] MEDICINE [address] [place] [phone] Reji Coronel MD [address] [place] [phone] New Patient Social History Tobacco Use Types Packs/Day Years Used Date Smoking Tobacco: Every Day Cigarettes 1 19 Smokeless Tobacco: Never Sex and Gender Information Value Date Recorded Sex Assigned at Male 12/19/2021 10:29 AM EDT Legal Sex Male 10:29 AM EDT Gender Identity Male 02/23/2022 2:04 PM EST Sexual Orientation Straight 02/23/2022 2: 04 PM EST documented as of this encounter Miscellaneous Notes * Telephone Encounter - Endy Tello - 10/12/2022 10:21 AM EDT Pt has been transfer over to wait list for CIRCULAR SAW FILER. EFFECTIVE SINCE 09/05/2022 documented in this encounter Plan of Treatment Upcoming Encounters Date Type Department Care Team (Late st Contact Info) Description 01/19/2025 1:00 PM EST Clinical Support [facility] MEDICINE [address] [place] [phone] Lashell Kapadia RN documented as of this encounter Visit Diagnoses Not on filedocumented in this encounter Care Teams Customer Account Manager Relationship Specialty Start Date End Date Donna Friedman MD [address] [place] [address] PCP - General Internal Medicine 07/17/23 documented as of this encounter
--- OUTSIDE RECORDS SUMMARY | 2024-10-27 18:38 | XMS_ITS | Encounter Summary ---
Author Organization [employer] Address [address] [facility] [address] 7t [place] [address] Care Team Providers Care Surface Lay Out Technician Name Role Phone Donna Friedman MD Primary Care Provide r Encounter Details Date Type Department Care Team ([facility] Contact Info) Description 04/03/2022 Orders Only [facility] MED & PEDS [address] [place], [place] [phone] Al Hernández MD [address] [place] [address] Social History Tobacco Use Types Packs/Day Years [...] suspected to have Coronavirus/COVID-19? No / Unsure 04/03/2022 12:59 PM EST documented as of this encounter Plan of Treatment Upcoming Encounters Date Type Department Care Team (Late Contact Info) Description 01/19/2025 1:00 PM EST Clinical Support [facility] MEDICINE [address] [place] [address] Lashell Kapadia RN documented as of this encounter Visit Diagnoses Not on filedocumented in this encounter Care Teams Surface Lay Out Technician Relationship Specialty Start Date End Date Donna Friedman MD [address] [place] [address] PCP - General Internal Medicine 07/17/23 documented as of this encounter
--- OUTSIDE RECORDS SUMMARY | 2024-10-27 18:38 | XMS_ITS | Encounter Summary ---
Author Organization [facility] Address [address] [place] [address] 7t [place] [address] Care Team Providers Care Grapple Skidder Operator Name Role Phone Donna Friedman MD Primary Care Provide r Encounter Details Date Type Department Care Team ([facility] Contact Info) Description 03/03/2022 Orders Only [facility] [address] [place] [phone] Lashell Kapadia, FABIAN Uncomplicated opioid dependence (CMS/HCC) Social History Tobacco Use Types Packs/Day Years [...] Description 01/19/2025 1:00 PM EST Clinical Support [facility] [address] [place] [address] Lashell Kapadia, FABIAN Scheduled Orders Name Type Priority Associated Diagnoses Orde r Schedule QUANTIFERON TB GOLD Lab Routine Uncomplicated opioid dependence (CMS/HCC) Expected: 03/03/2022 (Approximate), Expires: 03/03/2023 documented as of this encounter Procedures Procedure Name Priority Date/Time Associated Diagnosis Comments T-SPOT(R).TB Routine 05/01/2022 2:39 PM EDT Uncomplicated opioid dependence (CMS/HCC) HEPATITIS B SURFACE AB IMMUNITY, QN Routine 05/01/2022 2:39 PM EDT Uncomplicated opioid dependence (CMS/HCC) HEPATITIS C AB W/REFL TO HCV RNA, QN, PCR Routine 05/01/2022 2:39 PM EDT Uncomplicated opioid dependence (CMS/HCC) HEPATITIS A ANTIBODY, TOTAL Routine 05/01/2022 2:39 PM EDT Uncomplicated opioid dependence (CMS/HCC) HEPATITIS B CORE AB TOTAL Routine 05/01/2022 2:39 PM EDT Uncomplicated opioid dependence (CMS/HCC) QUANTIFERON(R)-TB GOLD PLUS, 1 TUBE Routine 05/01/2022 2:39 PM EDT RPR (MONITOR) W/REFL TITER Routine 05/01/2022 2:39 PM EDT Uncomplicated opioid dependence (CMS/HCC) HIV 1/2 ANTIGEN/ANTIBODY, FOURTH GENERATION W/RFL Routine 05/01/2022 2:39 PM EDT Uncomplicated opioid dependence (CMS/HCC) HEPATITIS B SURFACE ANTIGEN W/REFL CONFIRM Routine 05/01/2022 2:39 PM EDT Uncomplicated opioid dependence (CMS/HCC) HEPATIC FUNCTION PANEL Routine 05/01/2022 2:39 PM EDT Uncomplicated opioid dependence (CMS/HCC) documented in this encounter Results * QuantiFERON??-TB Gold Plus, 1 Tube (05/01/2022 2:39 PM EDT) Quantiferon -TB Gold Plus, 1 Tube NEGATIVE NEGATIVE [employer] [place] [employer] Comment: Negative test result. M. tuberculosis complex infection unlikely. NIL 0.03 IU/mL [facility] MITOGEN-NIL >10.00 IU/mL [facility] TB1-NIL 0.03 IU/mL [facility] [place] [employer] TB2-NIL 0.02 IU/mL [facility] [place] [employer] Comment: The Nil tube value reflects the background interferon gamma immune response of the patient's blood sample. This value has been subtracted from the patient's displayed TB and Mitogen results. Lower than expected results with the Mitogen tube prevent false-negative Quantiferon readings by detecting a patient with a potential immune suppressive condition and/or suboptimal pre-analytical specimen handling. The TB1 Antigen tube is coated with the M. tuberculosis-specific antigens designed to elicit responses from TB antigen primed CD4+ helper T-lymphocytes. The TB2 Antigen tube is coated with the M. tuberculosis-specific antigens designed to elicit responses from TB antigen primed CD4+ helper and CD8+ cytotoxic T-lymphocytes. For additional information, please refer to https://education.[employer]/faq/MAO603 (This link is being provided for informational/ educational purposes only.) 05/01/2022 2:39 PM EDT 05/01/2022 2:40 PM EDT Narrative [facility] - 05/06/2022 10:39 PM EDT FASTING:YES FASTING: YES Al Hernández MD LAB BLOOD ORDERABLES Final Resul t [facility] [address], [place] [address] [facility] [address] [place] [address] * T-SPOT??.TB (05/01/2022 2:39 PM EDT) [facility] T-Spot. TB Negative Negative [facility] Comment: A negative test result does not exclude the possibility of exposure to or infection with Mycobacterium tuberculosis (M. tuberculosis). Patients with recent exposure to TB infected individuals exhibiting a negative T-SPOT.TB result should be considered for retesting within 6 weeks or if other relevant clinical symptoms indicate. Results from T-SPOT.TB testing must be used in conjunction with each individual's epidemiological history, current medical status, and results of other diagnostic evaluations. The T-SPOT.TB test is qualitative and results are reported as positive, borderline, or negative, given that the test controls perform as expected. In line with the Centers for Disease Control and Prevention's 2010 recommendation to report quantitative measurements alongside the qualitative result, the laboratory provides spot counts for informational purposes only. The T-SPOT.TB test should not be interpreted as a quantitative test. Panel A Spot Count Corrected For Neg Control 1 [facility] [place] Panel B Spot Count Corrected For Neg Control 0 [facility] Negative Control Passed [facility] [place] Positive Control Passed [facility] [place] Comment: For additional information, please refer to http://education.[employer]/faq/CVY882 (This link is being provided for informational/ educational purposes only.) 05/01/2022 2:39 PM EDT 05/01/2022 2:40 PM EDT Narrative [facility] - 05/06/2022 10:39 PM EDT FASTING:YES FASTING: YES us Al Hernández MD LAB BLOOD ORDERABLES Final Resul t Performing Organization Address City/[facility]/ZIP Co de Phone Number [employer] [address], [place] [address] [facility] [id number] [facility] [place] [phone] * RPR (Monitor) with Reflex to??Titer (05/01/2022 2:39 PM EDT) RPR (Monitor) w/Refl Titer NON-REACT SHARONDA NON-REACT SHARONDA [facility] Blood Venous blood specimen / Unknown 05/01/2022 2:39 PM EDT 05/01/2022 2:40 PM EDT Narrative [facility] - 05/06/2022 10:39 PM EDT FASTING:YES FASTING: YES us Al Hernández MD LAB BLOOD ORDERABLES Final Resul t [employer] [facility] [employer] [facility] [address], [place] [address] [facility] [place] [employer] [address] [place] [address] * HIV-1/2 Antigen and Antibodies, Fourth Generation, with Reflexes (05/01/2022 2:39 PM EDT) HIV Antigen/Antibody, 4th Generation NON-REAC TIVE NON-REAC TIVE [employer] [place] [employer] Comment: HIV-1 antigen and HIV-1/HIV-2 antibodies were [...] purpose. For additional information please refer to http://education.[employer]/faq/GKV646 (This link is being provided for informational/ educational purposes only.) The performance of this assay has not been clinically validated in patients less than 2 years old. Blood Venous blood specimen / Unknown 05/01/2022 2:39 PM EDT 05/01/2022 2:40 PM EDT Narrative [facility] - 05/06/2022 10:39 PM EDT FASTING:YES FASTING: YES us Al Hernández MD LAB BLOOD ORDERABLES Final Resul t [facility] [address], [place] [address] [employer] [employer] [place] [employer] 200 [place] [address] * Hepatitis C Antibody with Reflex to HCV, RNA, Quantitative, Real-Time PCR (05/01/2022 2:39 PM EDT) Hepatitis C Antibody NON-REACT SHARONDA NON-REACT SHARONDA [employer] [place] [employer] Index 0.10 <1.00 [facility] Comment: HCV antibody was non-reactive. There is no laboratory evidence of HCV infection. In most cases, no further action is required. However, if recent HCV exposure is suspected, a test for HCV RNA (test code 62334) is suggested. For additional information please refer to http://education.[employer]/faq/CHA32z3 (This link is being provided for informational/ educational purposes only.) Blood Venous blood specimen / Unknown 05/01/2022 2:39 PM EDT 05/01/2022 2:40 PM EDT Narrative [facility] - 05/06/2022 10:39 PM EDT FASTING:YES FASTING: YES us Al Hernández MD LAB BLOOD ORDERABLES Final Resul t Performing Organization Address [facility] de Phone Number [address], [place] [address] [employer] [place] [employer] [address] [place] [phone] * Hepatitis B Surface Antigen with Reflex Confirmation (05/01/2022 2:39 PM EDT) Hepatitis B Surface Ag NON-REACT SHARONDA NON-REACT SHARONDA [employer] [employer] [place] [employer] Blood Venous blood specimen / Unknown 05/01/2022 2:39 PM EDT 05/01/2022 2:40 PM EDT Narrative [facility] - 05/06/2022 10:39 PM EDT FASTING:YES FASTING: YES us Al Hernández MD LAB BLOOD ORDERABLES Final Resul t Performing Organization Address [facility] de Phone Number [employer] [address] [place] [address], [place] [address] [employer] [place] [employer] [address] [place] [phone] * Hepatitis B Surface Antibody Immunity, Quantitative (05/01/2022 2:39 PM EDT) Hepatitis B Surface Antibody Immunity, QN >1000 > OR = 10 mIU/mL [facility] Comment: PATIENT HAS IMMUNITY TO HEPATITIS B VIRUS. For additional information, please refer to http://[employer]/faq/ZFC893 (This link is being provided for informational/ educational purposes only). 05/01/2022 2:39 PM EDT 05/01/2022 2:40 PM EDT Narrative [facility] - 05/06/2022 10:39 PM EDT FASTING:YES FASTING: YES us Al Hernández MD LAB BLOOD ORDERABLES Final Resul t Performing Organization Address [facility] de Phone Number [address], [place] [address] [employer] [place] [employer] [address] [place] [phone] * Hepatitis B Core Antibody, Total (05/01/2022 2:39 PM EDT) Hepatitis B Core Antibody Total NON-REACT SHARONDA NON-REACT SHARONDA [employer] [employer] [place] [employer] Blood Venous blood specimen / Unknown 05/01/2022 2:39 PM EDT 05/01/2022 2:40 PM EDT Narrative [facility] - 05/06/2022 10:39 PM EDT FASTING:YES FASTING: YES Result Julian Hernández MD LAB BLOOD ORDERABLES Final Resul t Performing Organization Address [facility] de Phone Number [address], [place] [address] [employer] [place] [employer] [address] [place] [phone] * (ABNORMAL) Hepatitis A Antibody IgG (05/01/2022 2:39 PM EDT) Hepatitis A Antibody Total REACTIVE( A) NON-REACT SHARONDA [facility] Comment: For additional information, please refer to http://[employer]/faq/IYW561 (This link is being provided for informational/ educational purposes only.) Blood Venous blood specimen / Unknown 05/01/2022 2:39 PM EDT 05/01/2022 2:40 PM EDT Narrative [facility] - 05/06/2022 10:39 PM EDT FASTING:YES FASTING: YES us Al Hernández MD LAB BLOOD ORDERABLES Final Resul t Performing Organization Address [facility]/ZIP Co de Phone Number [facility] [address], [place] [address] [facility] [address] [place] [address] * Hepatic Function Panel (05/01/2022 2:39 PM EDT) Pathologist [facility] Protein, Total 7.4 6.1 - 8.1 g/dL [facility] Albumin 4.4 3.6 - 5.1 g/dL [facility] Globulin 3.0 1.9 - 3.7 g/dL (calc) [facility] Albumin/Globulin Ratio 1.5 1.0 - 2.5 (calc) [facility] Bilirubin, Total 0.8 0.2 - 1.2 mg/dL [facility] Bilirubin, Direct 0.2 < OR = 0.2 mg/dL [facility] Bilirubin, Indirect 0.6 0.2 - 1.2 mg/dL (calc) [facility] Alkaline Phosphatase 67 36 - 130 U/L [facility] AST 17 10 - 40 U/L [facility] [employer] ALT 20 9 - 46 U/L [facility] Blood Venous blood specimen / Unknown 05/01/2022 2:39 PM EDT 05/01/2022 2:40 PM EDT Narrative [facility] - 05/06/2022 10:39 PM EDT FASTING:YES FASTING: YES us Al Hernández MD LAB BLOOD ORDERABLES Final Resul t Performing Organization Address [facility] Co de Phone Number [facility] [address], [place] [address] [facility] [place] [employer] [facility] [address] [place] [address] documented in this encounter Visit Diagnoses Diagnosis Uncomplicated opioid dependence (CMS/HCC) documented in this encounter Care Teams Grapple Skidder Operator Relationship Specialty Start Date End Date Donna Friedman MD [address] [place] [address] PCP - General Internal Medicine 07/17/23 documented as of this encounter
--- OUTSIDE RECORDS SUMMARY | 2024-10-27 18:38 | XMS_ITS | Encounter Summary ---
Author Organization [employer] Address [address] [place] [address] Care Team Providers Care Luncheonette Manager Name Role Phone Donna Friedman MD Primary Care Provide r Reason for Visit * Reason Comments Med Refill Encounter Details Date Type Department Care Team ([facility] st Contact Info) Description 08/27/2023 Refill [facility] [address] [place], [place] [phone] Al Hernández MD [address] [place], [place] [phone] Uncomplicated opioid dependence (CMS/[facility]) Social History Tobacco Use Types Packs/Day Years Used Date Smoking Tobacco: Every Day Cigarettes 0.3 19 Smokeless Tobacco: Never Alcohol Use Standard Drinks/Week Comments Never 0 (1 standard drink = 0.6 oz [...] Description 01/19/2025 1:00 PM EST Clinical Support [facility] [address] [place] [address] Lashell Kapadia RN documented as of this encounter Visit Diagnoses Diagnosis Uncomplicated opioid dependence (CMS/HCC) documented in this encounter Additional Health Concerns Assessment Noted Time PHQ-9 Depression Total Score: 20 024 10:30 AM EDT documented as of this encounter Care Teams Luncheonette Manager Relationship Specialty Start Date End Date Donna Friedman MD [address] [place] [address] PCP - General Internal Medicine 07/17/23 documented as of this encounter
--- OUTSIDE RECORDS SUMMARY | 2024-10-27 18:38 | XMS_ITS | Encounter Summary ---
Author Organization [employer] [facility] Address [address] [place] [address] Care Team Providers Care Residential Finish Carpenter Name Role Phone Donna Friedman MD Primary Care Provide r Reason for Visit * Reason Comments Med Refill Encounter Details Date Type Department Care Team ([facility] st Contact Info) Description 08/25/2024 Refill [facility] [address] [place], [place] [phone] Al Hernández MD [address] [place], [place] [phone] Uncomplicated opioid dependence (CMS/[facility]) Social History Tobacco Use Types [...] Description 01/19/2025 1:00 PM EST Clinical Support [facility] [address] [place] [address] Lashell Kapadia RN documented as of this encounter Visit Diagnoses Diagnosis Uncomplicated opioid dependence (CMS/HCC) documented in this encounter Additional Health Concerns Assessment Noted Time PHQ-9 Depression Total Score: 20 024 10:30 AM EDT documented as of this encounter Care Teams Residential Finish Carpenter Relationship Specialty Start Date End Date Donna Friedman MD [address] [place] [address] PCP - General Internal Medicine 07/17/23 documented as of this encounter
--- OUTSIDE RECORDS SUMMARY | 2024-10-27 18:38 | XMS_ITS | Encounter Summary ---
Author Organization [employer] Address [address] [place] [address] Care Team Providers Care Timber Poisoner Name Role Phone Donna Friedman MD Primary Care Provide r Encounter Details Date Type Department Care Team (Latest Contact Info) Description 10/27/2024 Travel Social History Tobacco Use Types Packs/Day Years [...] Description 01/19/2025 1:00 PM EST Clinical Support [facility] [address] [place] [address] Lashell Kapadia RN documented as of this encounter Visit Diagnoses Not on filedocumented in this encounter Additional Health Concerns Assessment Noted Time PHQ-9 Depression Total Score: 20 024 10:30 AM EDT documented as of this encounter Care Teams Timber Poisoner Relationship Specialty Start Date End Date Donna Friedman MD [address] [place] [address] PCP - General Internal Medicine 07/17/23 documented as of this encounter
--- OUTSIDE RECORDS SUMMARY | 2024-10-27 18:38 | XMS_ITS | Encounter Summary ---
Author Organization [employer] Address [address] [place] [address] Care Team Providers Care Parent Trainer Name Role Phone Donna Friedman MD Primary Care Provide r Encounter Details Date Type Department Care Team (Late st Contact Info) Description 10/24/2024 Orders Only [facility] [address] [place] [address] Lashell Kapadia RN Uncomplicated opioid dependence (CMS/HCC) Social History Tobacco [...] the past 12 months, has t he Going[employer], gas, oil or water company threatened to [...] 1:00 PM EST Clinical Support [facility] [address] [place] [address] Lashell Kapadia RN Scheduled Orders Name Type Priority Associated Diagnoses Orde r Schedule Hepatic Function Panel Lab Routine Uncomplicated opioid dependence (CMS/HCC) Expected: 10/24/2024 (Approximate), Expires: 10/24/2025 Hepatitis C Antibody with Reflex to HCV, RNA, Quantitative, Real-Time PCR Lab Routine Uncomplicated opioid dependence (CMS/HCC) Expected: 10/24/2024 (Approximate), Expires: 10/24/2025 HIV-1/2 Antigen and Antibodies, Fourth Generation, with Reflexes Lab Routine Uncomplicated opioid dependence (CMS/HCC) Expected: 10/24/2024 (Approximate), Expires: 10/24/2025 Syphilis Screen Lab Routine Uncomplicated opioid dependence (CMS/HCC) Expected: 10/24/2024 (Approximate), Expires: 10/24/2025 T-SPOT .TB Lab Routine Uncomplicated opioid dependence (CMS/HCC) Expected: 10/24/2024 (Approximate), Expires: 10/24/2025 documented as of this encounter Visit Diagnoses Diagnosis Uncomplicated opioid dependence (CMS/HCC) documented in this encounter Additional Health Concerns Assessment Noted Time PHQ-9 Depression Total Score: 20 024 10:30 AM EDT documented as of this encounter Care Teams Parent Trainer Relationship Specialty Start Date End Date Donna Friedman MD [address] [place] [address] PCP - General Internal Medicine 07/17/23 documented as of this encounter
--- OUTSIDE RECORDS SUMMARY | 2024-10-27 18:39 | XMS_ITS | Encounter Summary ---
Author Organization [email or web address] Address [address] [place] [address] Care Team Providers Care Radiology Technologist Name Role Phone Donna Friedman MD Primary Care Provide r Encounter Details Date Type Department Care Team (Late st Contact Info) Description 02/18/2024 Orders Only [facility] [address] [place], [place] [phone] Al Hernández MD [address] [place], [place] [phone] Social History Tobacco Use Types Packs/Day Years [...] Description 01/19/2025 1:00 PM EST Clinical Support [facility] [address] [place] [address] Lashell Kapadia RN documented as of this encounter Visit Diagnoses Not on filedocumented in this encounter Additional Health Concerns Assessment Noted Time PHQ-9 Depression Total Score: 20 024 10:30 AM EDT documented as of this encounter Care Teams Radiology Technologist Relationship Specialty Start Date End Date Donna Friedman MD [address] [place] [address] PCP - General Internal Medicine 07/17/23 documented as of this encounter
[2024-10-28 03:31] LABS: Syphilis Screen Nonreactive (Nonreactive)
[2024-10-28 04:30] LABS: HIV Num 1 0.05 S/CO (0.00-0.99); ~HepC Num1 0.11 S/CO (0.00-0.79); ~Hepatitis C Antibody Nonreactive (Nonreactive)
== END 2024-10-27 15:55 | disposition home or self-care (01) ==
LOC: HO.HHCL 15:54
PROVIDERS: PCP Internal Medicine; Visit Provider Emergency Medicine
DX: Z11.3 Encounter for screening for infections with a predominantly sexual mode of transmission (principal); Z11.59 Encounter for screening for other viral diseases; Z11.4 Encounter for screening for human immunodeficiency virus [HIV]; F11.20 Opioid dependence, uncomplicated
CPT/HCPCS: 36415; 80076; 86780; 86803; 87389